=== PATIENT | male | born 2000 | race Caucasian/White ===

== ENCOUNTER 2022-03-30 18:25 | Emergency (ER) | payer OTHER ==
[~2022-03-30] VITALS: Ht 177.8 cm; Wt 72.6 kg
[2022-03-30 19:50] VITALS: BP 144/90
--- NOTE | 2022-03-30 19:53 | NUR ---
TO LOBBY A/W BED AMBULATORY
[2022-03-30] MEDS ORDERED: CEPH-588 PO (20:00)
[2022-03-30] MEDS ORDERED: BACI1PAC6 TP (20:00)
[2022-03-30] MEDS ORDERED: ATA25 PO (20:00)
--- NOTE | 2022-03-30 20:06 | NUR ---
Patient discharged with v/s stable. Written and verbal after care instructions given and explained. Patient alert, oriented and verbalized understanding of instructions. Ambulatory with steady gait. All questions addressed prior to discharge. ID band removed. Patient advised to follow up with PMD. Rx of ATARAX BACITRACIN KEFLEX given.
--- NOTE | 2022-03-31 05:24 | NUR ---
The patient's care was reviewed and supervised by Lorrie Kelly RN, RN.
== END 2022-03-30 20:06 | disposition home or self-care (01) ==
LOC: MED 18:25
DX: L03.115 Cellulitis of right lower limb (principal); Z79.899 Other long term (current) drug therapy
CPT/HCPCS: 99283

== ENCOUNTER 2022-04-05 10:21 | Emergency (ER) | payer OTHER ==
[~2022-04-05] VITALS: Ht 177.8 cm; Wt 72.6 kg
[~2022-04-05 10:21] MED LIST: ATA25 PO; BACI1PAC6 TP; CEPH-588 PO
[2022-04-05 10:35] VITALS: BP 132/81
--- NOTE | 2022-04-05 11:11 | NUR ---
PT WENT TO XRAY VIA W/C WITH TECH
[2022-04-05] MEDS ORDERED: IBUP-2213 PO (12:22)
[2022-04-05] MEDS: KETOROLAC 30 MG/ML VIAL IM ONE (12:28)
[2022-04-05 12:45] VITALS: BP 138/74
--- NOTE | 2022-04-05 12:45 | NUR ---
Patient discharged with v/s stable. Written and verbal after care instructions given. Patient alert, oriented and verbalized understanding of instructions. Ambulatory with steady gait. All questions addressed prior to discharge. ID band removed. Patient advised to follow up with PMD. Rx of Ibuprofen given. Opportunity to ask questions provided and answered. WORK NOTE HANDED TO PATIENT.
== END 2022-04-05 12:45 | disposition home or self-care (01) ==
LOC: MED 10:21
DX: S93.401A Sprain of unspecified ligament of right ankle, initial encounter (principal); Z79.899 Other long term (current) drug therapy; X58.XXXA Exposure to other specified factors, initial encounter; Y93.31 Activity, mountain climbing, rock climbing and wall climbing; Y92.89 Other specified places as the place of occurrence of the external cause; Y99.8 Other external cause status
CPT/HCPCS: 73610; 99283; J1885